=== PATIENT | female | born 1970 | race Caucasian/White ===

== ENCOUNTER 2017-09-18 15:04 | Emergency (ER) | payer OTHER ==
[~2017-09-18] VITALS: Ht 162.6 cm; Wt 71.0 kg
[~2017-09-18 15:04] MED LIST: CYCL-36 PO; DICL75 PO; DOXY100T OR; OXYC-360 PO; TUSSSUS PO
[2017-09-18 15:17] VITALS: BP 141/62; PULSE 72; RESP 16; TEMP 98.4; O2SAT 99
[2017-09-18] MEDS ORDERED: AMOX875T PO (15:50)
--- NOTE | 2017-09-18 15:52 | PD ---
HPI Chief Complaint: ENT Complaint Time Seen by Provider: 15:45 Travel History International Travel<30 days: No Contact w/Intl Traveler<30days: No Traveled to known affect area: No History of Present Illness HPI 47-year-old female presents for evaluation of sore throat, ear pressure, slight cough and congestion. Symptoms started 4 days ago. It hurts to swallow with no leading factors. She reports a fever as high as 101. She has not been using any medication for symptom relief. Denies rash, recent travel. No sick contacts. No other complaints at this time. PFSH Past Medical History Immunizations Current: Yes ?: Not : 4 Para: 3 Miscarriage: 1 Tubal Ligation: Yes (1997) Past Surgical History Gynecologic Surgery: Yes (UTERINE ABLATION) Social History Alcohol Use: No Tobacco Use: Yes (1 PPD) Substance Use: No Allergies-Medications (Allergen,Severity, Reaction): Coded Allergies: No Known Allergies (Verified Adverse Reaction, Unknown, 09/18/17) Reported Meds & Prescriptions Reported Meds & Active Scripts Active Flexeril (Cyclobenzaprine HCl) 10 Mg Tab 10 Mg PO Q8HPRN Diclofenac Sodium 75 Mg Tab 75 Mg PO BID 10 Days Tussionex (Chlorphenir/Hydrocodone Polistirex) Liqcr 5 Ml PO BIDPRN Doxycycline Hyclate 100 Mg Tab 100 Mg OR BID Percocet (Oxycodone/Acetaminophen) 5 Mg/325 Mg Tab 1-2 Tab PO Q4-6HPRN FOR PAIN Review of Systems Except as stated in HPI: all other systems reviewed are Neg Physical Exam Narrative GENERAL: Well-developed well-nourished female in no acute distress SKIN: Warm and dry. HEAD: Atraumatic. Normocephalic. EYES: Pupils equal and round. No scleral icterus. No injection or drainage. ENT: No nasal bleeding or discharge. Mucous membranes pink and moist. Oral pharyngeal erythema and exudate Noted. Tympanic memories appear normal without erythema or fluid level. NECK: Trachea midline. No JVD. No lymphadenopathy CARDIOVASCULAR: Regular rate and rhythm. No murmur appreciated. RESPIRATORY: No accessory muscle use. Clear to auscultation. Breath sounds equal bilaterally. Data Data Last Documented VS Vital Signs Date Time Temp Pulse Resp B/P (MAP) Pulse Ox O2 Delivery O2 Flow Rate FiO2 09/18/17 15:17 98.4 72 16 141/62 (24) 99 MDM Medical Decision Making Medical Screen Exam Complete: Yes Emergency Medical Condition: Yes Medical Record Reviewed: Yes Differential Diagnosis Exudative pharyngitis, influenza, bronchitis, pneumonia, infectious mononucleosis Narrative Course The patient has exudative pharyngitis. She will be treated with amoxicillin. Diagnosis Primary Impression: Exudative pharyngitis Additional Instructions: Medication as prescribed. Take Tylenol or Motrin for pain. Stay well-hydrated and well-nourished. Return for any emergent medical conditions. Med/Other Pt SpecificInfo: Prescription(s) given Scripts Amoxicillin (Amoxicillin) 875 Mg Tab 875 MG PO BID for Infection for 10 Days, #20 TAB 0 Refills Prov: Jannette Jackson MD 09/18/17 Disposition: 01 DISCHARGE HOME Condition: Stable Yair Martinez Sep 18, 2017 15:52
== END 2017-09-18 16:43 | disposition home or self-care (01) ==
LOC: PHEFT 15:04
DX: J02.9 Acute pharyngitis, unspecified (principal); F17.210 Nicotine dependence, cigarettes, uncomplicated
CPT/HCPCS: 99283

== ENCOUNTER 2018-01-19 12:31 | Emergency (ER) | payer OTHER ==
[~2018-01-19] VITALS: Ht 162.6 cm; Wt 75.0 kg
[~2018-01-19 12:31] MED LIST changes: +AMOX875T PO
[2018-01-19 12:36] VITALS: BP 128/84; PULSE 72; RESP 14; TEMP 98; O2SAT 98
[2018-01-19 13:11] LABS: BILIRUBIN, URINE NEG (NEG); BLOOD, URINE NEG (NEG); GLUCOSE,URINE NEG (NEG); KETONE, URINE NEG (NEG); NITRITE,URINE NEG (NEG); URINE COLOR YELLOW (YELLW/STRAW); URINE LEUKOCYTE ESTERASE NEG (NEG)
[2018-01-19 13:15] VITALS: O2SAT 97
--- NOTE | 2018-01-19 13:17 | PD ---
HPI Chief Complaint: GI Complaint Time Seen by Provider: 13:07 Travel History International Travel<30 days: No Contact w/Intl Traveler<30days: No Traveled to known affect area: No History of Present Illness HPI Patient comes in complaining of diffuse abdominal pain, crampy in sensation, 5- 6 out of 10, associated with diffuse and profuse diarrhea at times the last 2 days. The patient attempted to use Pepto-Bismol but without any relief. Patient denied taking any Imodium [id number]. Patient denies any nausea or vomiting. Patient does state that her father has Crohn's disorder and that this overall is not the first time she has had similar symptoms. She has had episodes of diarrhea intermittently occurring over the past 15 years, she has not seen a GI specialist for formal diagnosis. 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 Tubal ligation and uterine ablation, patient is a and 1 miscarriage, half pack a day smoker PFSH Past Medical History Diminished Hearing: No Immunizations Current: Yes Thyroid Disease: Yes ?: Not LMP: Ablation : 4 Para: 3 Miscarriage: 1 Tubal Ligation: Yes (1997) Past Surgical History Gynecologic Surgery: Yes (UTERINE ABLATION) Other Surgery: Yes (thyroid removal) Social History Alcohol Use: No Tobacco Use: Yes (08/22 PPD) Substance Use: No Allergies-Medications (Allergen,Severity, Reaction): Coded Allergies: No Known Allergies (Verified Adverse Reaction, Unknown, 01/19/18) Reported Meds & Prescriptions Reported Meds & Active Scripts Active Review of Systems General / Constitutional: No: Fever Eyes: No: Visual changes HENT: No: Headaches Cardiovascular: No: Chest Pain or Discomfort Respiratory: No: Shortness of Breath Gastrointestinal: Positive: Diarrhea, Abdominal Pain Genitourinary: No: Dysuria Musculoskeletal: No: Pain Skin: No Rash Neurologic: No: Weakness Psychiatric: No: Depression Endocrine: No: Polydipsia Hematologic/Lymphatic: No: Easy Bruising Physical Exam Narrative GENERAL: SKIN: Warm and dry. HEAD: Atraumatic. Normocephalic. EYES: Pupils equal and round. No scleral icterus. No injection or drainage. ENT: No nasal bleeding or discharge. Mucous membranes pink and moist. NECK: Trachea midline. No JVD. CARDIOVASCULAR: Regular rate and rhythm. RESPIRATORY: No accessory muscle use. Clear to auscultation. Breath sounds equal bilaterally. GASTROINTESTINAL: Abdomen soft, diffusely tender to percussion throughout all quadrants , nondistended. MUSCULOSKELETAL: Extremities without clubbing, cyanosis, or edema. No obvious deformities. NEUROLOGICAL: Awake and alert. No obvious cranial nerve deficits. Motor grossly within normal limits. Five out of 5 muscle strength in the arms and legs. Normal speech. PSYCHIATRIC: Appropriate mood and affect; insight and judgment normal. Data Data Last Documented VS Vital Signs Date Time Temp Pulse Resp B/P (MAP) Pulse Ox O2 Delivery O2 Flow Rate FiO2 01/19/18 13:49 76 18 109/75 (86) 97 Room Air 01/19/18 12:36 98.0 Orders Orders Urinalysis - C+S If Indicated (01/19/18 12:32) Ed Urine Pregnancytest Poc (01/19/18 12:32) Ct Abd/Pel W Iv Contrast(Rout) (01/19/18 13:17) Complete Blood Count With Diff (01/19/18 13:42) Comprehensive Metabolic Panel (01/19/18 13:42) Lipase (01/19/18 13:42) Iv Access Insert/Monitor (01/19/18 13:42) Ecg Monitoring (01/19/18 13:42) Oximetry (01/19/18 13:42) NPO (01/19/18 13:42) Morphine Inj (Morphine Inj) (01/19/18 13:45) Ondansetron Inj (Zofran Inj) (01/19/18 13:45) Sodium Chlor 0.9% 1000 Ml Inj (Ns 1000 M (01/19/18 13:42) Sodium Chloride 0.9% Flush (Ns Flush) (01/19/18 13:45) Ketorolac Inj (Toradol Inj) (01/19/18 13:45) Iohexol 350 Inj (Omnipaque 350 Inj) (01/19/18 13:47) Labs Laboratory Tests Test 01/19/18 12:40 01/19/18 13:24 Urine Collection Type CLEAN CATCH Urine Color YELLOW Urine Turbidity CLEAR Urine pH 5.0 Urine Specific [place] 1.025 Urine Protein NEG mg/dL Urine Glucose (UA) NEG mg/dL Urine Ketones NEG mg/dL Urine Occult Blood NEG Urine Nitrite NEG Urine Bilirubin NEG Urine Urobilinogen 0.2 MG/DL Urine Leukocyte Esterase NEG Urine RBC 0-3 /hpf Urine WBC 0-2 /hpf Urine Squamous Epithelial Cells 0-5 /hpf Microscopic Urinalysis Comment CULT NOT INDICATED White Blood Count 9.4 TH/MM3 Red Blood Count 5.01 MIL/MM3 Hemoglobin 15.4 GM/DL Hematocrit 44.0 % Mean Corpuscular Volume 87.9 FL Mean Corpuscular Hemoglobin 30.8 PG Mean Corpuscular Hemoglobin Concent 35.1 % Red Cell Distribution Width 13.7 % Platelet Count 310 TH/MM3 Mean Platelet Volume 9.6 FL Neutrophils (%) (Auto) 54.5 % Lymphocytes (%) (Auto) 37.8 % Monocytes (%) (Auto) 3.8 % Eosinophils (%) (Auto) 2.4 % Basophils (%) (Auto) 1.5 % Neutrophils # (Auto) 5.2 TH/MM3 Lymphocytes # (Auto) 3.5 TH/MM3 Monocytes # (Auto) 0.4 TH/MM3 Eosinophils # (Auto) 0.2 TH/MM3 Basophils # (Auto) 0.1 TH/MM3 CBC Comment DIFF FINAL Differential Comment Blood Urea Nitrogen 9 MG/DL Creatinine 0.74 MG/DL Random Glucose 95 MG/DL Total Protein 7.9 GM/DL Albumin 3.9 GM/DL Calcium Level 9.4 MG/DL Alkaline Phosphatase 119 U/L Aspartate Amino Transf (AST/SGOT) 25 U/L Alanine Aminotransferase (ALT/SGPT) 44 U/L Total Bilirubin 0.2 MG/DL Sodium Level 140 MEQ/L Potassium Level 3.5 MEQ/L Chloride Level 108 MEQ/L Carbon Dioxide Level 24.7 MEQ/L Anion Gap 7 MEQ/L Estimat Glomerular Filtration Rate 85 ML/MIN Lipase 146 U/L [facility] Medical Decision Making Medical Screen Exam Complete: Yes Emergency Medical Condition: Yes Medical Record Reviewed: Yes Differential Diagnosis Gastroenteritis versus IBS versus colitis versus diverticulitis Narrative Course CBC shows no leukocytosis, no anemia, normal platelet count, no left shift UA is negative for any UTI Electrolytes are within normal limits, normal kidney liver and pancreatic functions CT abdomen and pelvis read as nonobstructive bowel gas pattern most characteristic of gastroenteritis, single small nonobstructing left renal calculus Diagnosis Primary Impression: Enteritis Referrals: Brigitte Freeman MD PLEASE CONTACT AND MAKE FOLLOW UP APPOINTMENT FOR FURTHER EVALUATION OF YOUR CONDITION. Patient Instructions: Gastroenteritis (ED), General Instructions Scripts Ondansetron Odt (Zofran Odt) 4 Mg Tab 4 MG SL Q6HR Y for Nausea/Vomiting, #20 TAB 0 Refills Prov: Dominik Garcia MD 01/19/18 Tramadol (Ultram) 50 Mg Tab 50 MG PO Q6H Y for PAIN, #15 TAB 0 Refills Prov: Dominik Garcia MD 01/19/18 Metronidazole (Flagyl) 500 Mg Tab 500 MG PO TID for Infection for 10 Days, #30 TAB 0 Refills Prov: Dominik Garcia MD 01/19/18 Ciprofloxacin (Cipro) 500 Mg Tab 500 MG PO BID for Infection for 7 Days, #14 TAB 0 Refills Prov: Dominik Garcia MD 01/19/18 Disposition: 01 DISCHARGE HOME Condition: Stable Dominik Garcia MD Jan 19, 2018 13:17
[2018-01-19 13:20] LABS: WBC, URINE 0-2 /hpf (0-5)
[2018-01-19 13:21] LABS: RBC, URINE 0-3 /hpf (0-3); SQUAMOUS EPITHELIAL CELL URINE 0-5 /hpf (0-5)
[2018-01-19] MEDS ORDERED: SODIUM CHLOR 0.9% 1000 ML INJ 1,000 ML IV SCH (13:42)
[2018-01-19] MEDS ORDERED: SODIUM CHLORIDE 0.9% FLUSH 10 ML FLUSH IV FLUSH PRN (13:45)
[2018-01-19] MEDS ORDERED: KETOROLAC TROMETHAMINE 30 MG/ML (IVP) VIAL IVP ONE (13:45)
[2018-01-19] MEDS ORDERED: MORPHINE SULFATE 4 MG/ML INJ IV PUSH ONE (13:45)
[2018-01-19] MEDS ORDERED: ONDANSETRON HCL 4 MG/2 ML VIAL IVP ONE (13:45)
[2018-01-19] MEDS ORDERED: IOHEXOL 350 MG/ML 10 ML VIAL (for RAD DIAG) IVCONTRAST ONE (13:47)
[2018-01-19 13:49] VITALS: BP 109/75; PULSE 76; RESP 18; O2SAT 97
[2018-01-19 13:52] LABS: AUTOMATED NEUTROPHIL # 5.2 TH/MM3 (1.8-7.7); BASOPHIL # 0.1 TH/MM3 (0-0.2); BASOPHIL % 1.5 % (0.0-2.0); EOSINOPHIL # 0.2 TH/MM3 (0-0.4); EOSINOPHIL % 2.4 % (0.0-4.0); HEMOGLOBIN 15.4 GM/DL (11.6-15.3); LYMPH % 37.8 % (9.0-44.0); LYMPHOCYTE # 3.5 TH/MM3 (1.0-4.8); MEAN CELL VOLUME 87.9 FL (80.0-100.0); MEAN CORPUSCULAR HEMOGLOBIN 30.8 PG (27.0-34.0); MEAN CORPUSCULAR HGB CONC 35.1 % (32.0-36.0); MEAN PLATELET VOLUME 9.6 FL (7.0-11.0); MONO % 3.8 % (0.0-8.0); MONOCYTE # 0.4 TH/MM3 (0-0.9); NEUT % 54.5 % (16.0-70.0); PLATELET COUNT 310 TH/MM3 (150-450); RED BLOOD COUNT 5.01 MIL/MM3 (4.00-5.30); RED CELL DISTRIBUTION WIDTH 13.7 % (11.6-17.2); WHITE BLOOD COUNT 9.4 TH/MM3 (4.0-11.0)
--- NOTE | 2018-01-19 14:00 | RADRPT ---
EXAM DATE: 01/19/2018 1:51 PM EDT AGE/SEX: 47 years / Female INDICATIONS: Diffuse abdominal pain and diarrhea x 2 days. CLINICAL DATA: This is the patient's initial encounter. Patient reports that signs and symptoms have been present for 2 days and indicates a pain score of 8/10. MEDICAL/SURGICAL HISTORY: None. Tubal ligation. ORAL CONTRAST: No oral contrast ingested. RADIATION DOSE: 8.81 CTDI (mGy) COMPARISON: No prior [facility] exams available for comparison. TECHNIQUE: Multiple contiguous axial images were obtained through the abdomen and pelvis following b olus infusion of 90 ml Omnipaque 350 (iohexol) nonionic water-soluble contrast as a single exam dos e. No oral contrast ingested. Using automated exposure control and adjustment of the mA and/or kV ac cording to patient size, the radiation dose was kept as low as reasonably achievable to obtain optima l diagnostic quality images. FINDINGS: Lower Lungs: The visualized lower lungs are clear. Liver: The liver has a homogeneous density without space-occupying lesion. There is no dilation of th e biliary tree. The gallbladder is unremarkable in appearance. Spleen: Homogeneous density without enlargement. Pancreas: Unremarkable without mass or calcification. Kidneys: Normal in size and shape. No evidence of mass or hydronephrosis. There is a single small 2 to 3 mm nonobstructing left renal calculus. Adrenal Glands: Unremarkable. Aorta: The aorta and proximal iliac vessels are grossly unremarkable without aneurysmal dilation. Bowel/Mesentery: No oral contrast was given limiting the sensitivity of the exam. There are multiple loops of nondilated air-containing small bowel with multiple small air-fluid levels. Gas and stool i s noted segmentally:. There is no inflammatory change or evidence of obstruction. No free air Abdominal Wall: Intact. Retroperitoneum: No evidence of adenopathy in the retrocrural, para-aortic, or deep pelvic regions. Bladder: Contours are smooth. Reproductive Organs: No abnormal masses or calcifications seen. Inguinal: The inguinal region is unremarkable without evidence of adenopathy. Bony Structures: Unremarkable. CONCLUSION: 1. Nonspecific, nonobstructive bowel gas pattern most characteristic of a gastroenteritis and/or ile us. 2. Single small nonobstructing left renal calculus. Electronically signed by: Tapan Salas MD 01/19/2018 1:58 PM EDT
[2018-01-19 14:01] LABS: CHLORIDE 108 MEQ/L (98-107); SODIUM (NA) 140 MEQ/L (136-145)
[2018-01-19 14:05] LABS: ALBUMIN 3.9 GM/DL (3.4-5.0); BICARBONATE 24.7 MEQ/L (21.0-32.0); BLOOD UREA NITROGEN 9 MG/DL (7-18); CALCIUM 9.4 MG/DL (8.5-10.1); GLUCOSE,RANDOM 95 MG/DL (74-106)
[2018-01-19 14:08] LABS: ALT (GPT) 44 U/L (10-53); AST (GOT) 25 U/L (15-37); CREATININE 0.74 MG/DL (0.50-1.00); GLOMERULAR FILTRATION RATE 85 ML/MIN (>89)
[2018-01-19 14:10] LABS: TOTAL BILIRUBIN ADULT 0.2 MG/DL (0.2-1.0); TOTAL PROTEIN 7.9 GM/DL (6.4-8.2)
[2018-01-19 14:11] LABS: ALKALINE PHOSPHATASE 119 U/L (45-117)
[2018-01-19] MEDS ORDERED: TRAM50 PO (14:31)
[2018-01-19] MEDS ORDERED: ZOFR4TAB3 SL (14:31)
[2018-01-19] MEDS ORDERED: CIPR-9 PO (14:31)
[2018-01-19] MEDS ORDERED: METR-1 PO (14:31)
[2018-01-19 14:58] VITALS: RESP 16
[2018-01-19 15:01] VITALS: BP 120/77
== END 2018-01-19 15:20 | disposition home or self-care (01) ==
LOC: PHED 12:31
DX: K52.9 Noninfective gastroenteritis and colitis, unspecified (principal); N20.0 Calculus of kidney; E03.9 Hypothyroidism, unspecified; F17.200 Nicotine dependence, unspecified, uncomplicated
CPT/HCPCS: 74177; 80053; 81001; 83690; 84703; 85025; 96361; 96374; 96375; 99284; J1885; J2270; J2405; J7030; Q9967

== ENCOUNTER 2018-01-22 11:51 | Emergency (ER) | payer OTHER ==
[~2018-01-22] VITALS: Ht 162.6 cm; Wt 65.0 kg
[~2018-01-22 11:51] MED LIST changes: -AMOX875T PO; +CIPR-9 PO; -CYCL-36 PO; -DICL75 PO; -DOXY100T OR; +METR-1 PO; -OXYC-360 PO; +TRAM50 PO; -TUSSSUS PO; +ZOFR4TAB3 SL
[2018-01-22 12:50] VITALS: BP 130/78; PULSE 70; RESP 18; TEMP 98.1; O2SAT 99
[2018-01-22] MEDS ORDERED: SODIUM CHLORIDE 0.9% FLUSH 10 ML FLUSH IV FLUSH PRN (16:00)
[2018-01-22] MEDS ORDERED: DICYCLOMINE HCL 10 MG CAP PO ONE (16:00)
[2018-01-22] MEDS ORDERED: KETOROLAC TROMETHAMINE 30 MG/ML (IVP) VIAL IV PUSH ONE (16:00)
[2018-01-22] MEDS ORDERED: LEVO200T4 PO (16:02)
--- NOTE | 2018-01-22 16:34 | RADRPT ---
EXAM DATE: 01/22/2018 4:21 PM EDT AGE/SEX: 47 years / Female INDICATIONS: Vomiting and constipation for 5 days. CLINICAL DATA: This is the patient's initial encounter. Patient reports that signs and symptoms have been present for 4 - 6 days and indicates a pain score of 6/10. MEDICAL/SURGICAL HISTORY: None. Tubal ligation. COMPARISON: No prior [facility] exams available for comparison. FINDINGS: Supine and upright views of the abdomen were performed. The abdominal bowel gas pattern is normal. No air-fluid levels are seen. No abnormal masses, or organomegaly is seen. Punctate calcification proje cts over the lower pole collecting system of the left kidney. A number of phleboliths are identified in the deep pelvis The visualized lower lungs are clear. No evidence of free intraperitoneal gas. The osseous structures are unremarkable. CONCLUSION: 1. Subcentimeter calcification projecting over the lower pole of the left kidney characteristic of a small stone. 2. Nonobstructive bowel gas pattern. No pneumoperitoneum. Electronically signed by: Blake Nolen MD 01/22/2018 4:33 PM EDT
[2018-01-22 16:35] LABS: AUTOMATED NEUTROPHIL # 5.7 TH/MM3 (1.8-7.7); BASOPHIL # 0.1 TH/MM3 (0-0.2); BASOPHIL % 0.7 % (0.0-2.0); EOSINOPHIL # 0.3 TH/MM3 (0-0.4); EOSINOPHIL % 2.7 % (0.0-4.0); HEMATOCRIT 43.9 % (35.0-46.0); HEMOGLOBIN 14.8 GM/DL (11.6-15.3); LYMPH % 32.8 % (9.0-44.0); LYMPHOCYTE # 3.2 TH/MM3 (1.0-4.8); MEAN CELL VOLUME 88.4 FL (80.0-100.0); MEAN CORPUSCULAR HEMOGLOBIN 29.9 PG (27.0-34.0); MEAN CORPUSCULAR HGB CONC 33.8 % (32.0-36.0); MEAN PLATELET VOLUME 8.5 FL (7.0-11.0); MONO % 5.5 % (0.0-8.0); MONOCYTE # 0.5 TH/MM3 (0-0.9); NEUT % 58.3 % (16.0-70.0); PLATELET COUNT 298 TH/MM3 (150-450); RED BLOOD COUNT 4.97 MIL/MM3 (4.00-5.30); RED CELL DISTRIBUTION WIDTH 14.2 % (11.6-17.2); WHITE BLOOD COUNT 9.7 TH/MM3 (4.0-11.0)
[2018-01-22 16:45] VITALS: O2SAT 98
[2018-01-22 16:48] LABS: PROTHROMBIN TIME - PATIENT 10.5 SEC (9.8-11.6)
[2018-01-22 16:54] LABS: ALBUMIN 3.9 GM/DL (3.4-5.0); ALT (GPT) 49 U/L (10-53); AST (GOT) 42 U/L (15-37); BICARBONATE 25.5 MEQ/L (21.0-32.0); BLOOD UREA NITROGEN 8 MG/DL (7-18); CALCIUM 9.1 MG/DL (8.5-10.1); CHLORIDE 107 MEQ/L (98-107); CREATININE 0.78 MG/DL (0.50-1.00); GLOMERULAR FILTRATION RATE 80 ML/MIN (>89); GLUCOSE,RANDOM 91 MG/DL (74-106); SODIUM (NA) 141 MEQ/L (136-145)
[2018-01-22 16:57] LABS: ALKALINE PHOSPHATASE 122 U/L (45-117); TOTAL BILIRUBIN ADULT 0.2 MG/DL (0.2-1.0); TOTAL PROTEIN 7.9 GM/DL (6.4-8.2)
[2018-01-22 17:13] LABS: BACTERIA, URINE RARE /hpf; BILIRUBIN, URINE NEG (NEG); BLOOD, URINE NEG (NEG); GLUCOSE,URINE NEG (NEG); KETONE, URINE NEG (NEG); MUCUS URINE FEW /lpf (OCC); NITRITE,URINE NEG (NEG); SQUAMOUS EPITHELIAL CELL URINE 17 /hpf (0-5); URINE COLOR YELLOW (YELLW/STRAW); URINE LEUKOCYTE ESTERASE MOD (NEG)
[2018-01-22 18:14] VITALS: BP 128/74
--- NOTE | 2018-01-22 18:16 | PD ---
HPI Chief Complaint: Abdominal Pain Time Seen by Provider: 15:32 Travel History International Travel<30 days: No Contact w/Intl Traveler<30days: No Traveled to known affect area: No History of Present Illness HPI Patient is a 47-year-old female who comes in complaining of abdominal pain. She says she has been having pain since last week. She was seen [place] where she had a CAT scan done that showed a possible colitis. She was discharged home with prescriptions for antibiotics and pain medicine. She says she has been taking the antibiotics without any improvement. She has not really been taking the pain medicine much at home. She says that she had diarrhea last week, but now she is constipated. She denies nausea or vomiting. She denies fever chills. She denies any urinary symptoms. Severity is mild to moderate. PFSH Past Medical History Diminished Hearing: No Immunizations Current: Yes Thyroid Disease: Yes (REMOVED) ?: Not LMP: ABLATION : 4 Para: 3 Miscarriage: 1 Tubal Ligation: Yes (1997) Past Surgical History Gynecologic Surgery: Yes (UTERINE ABLATION) Other Surgery: Yes (THYROID REMOVAL) Social History Alcohol Use: Yes (SOCIALLY) Tobacco Use: Yes (1 PPD) Substance Use: No Allergies-Medications (Allergen,Severity, Reaction): Coded Allergies: No Known Allergies (Verified Adverse Reaction, Unknown, 01/22/18) Reported Meds & Prescriptions Reported Meds & Active Scripts Active Zofran Odt (Ondansetron Odt) 4 Mg Tab 4 Mg SL Q6HR PRN Ultram (Tramadol HCl) 50 Mg Tab 50 Mg PO Q6H PRN Flagyl (Metronidazole) 500 Mg Tab 500 Mg PO TID 10 Days Cipro (Ciprofloxacin HCl) 500 Mg Tab 500 Mg PO BID 7 Days Reported Levothyroxine (Levothyroxine Sodium) 200 Mcg Tab 200 Mcg PO DAILY Review of Systems Except as stated in HPI: all other systems reviewed are Neg General / Constitutional: No: Fever, Chills HENT: No: Headaches, Lightheadedness Cardiovascular: No: Chest Pain or Discomfort Respiratory: No: Shortness of Breath Gastrointestinal: Positive: Abdominal Pain, Constipation, No: Nausea, Vomiting Genitourinary: No: Dysuria Musculoskeletal: No: Myalgias, Edema Skin: No Rash, No Change in Pigmentation Neurologic: No: Weakness, Dizziness Physical Exam Narrative GENERAL: Awake and alert, in no acute distress. SKIN: Focused skin assessment warm/dry. HEAD: Atraumatic. Normocephalic. EYES: Pupils equal and round. No scleral icterus. ENT: No nasal bleeding or discharge. Mucous membranes pink and moist. NECK: Trachea midline. No JVD. CARDIOVASCULAR: Regular rate and rhythm. No murmur appreciated. RESPIRATORY: No accessory muscle use. Clear to auscultation. Breath sounds equal bilaterally. GASTROINTESTINAL: Abdomen soft, nondistended. Mild tenderness to palpation, worse in the lower abdomen. No rebound or guarding. MUSCULOSKELETAL: No obvious deformities. No clubbing. No cyanosis. No edema. NEUROLOGICAL: Awake and alert. No obvious cranial nerve deficits. Motor grossly within normal limits. Normal speech. PSYCHIATRIC: Appropriate mood and affect; insight and judgment normal. Data Data Last Documented VS Vital Signs Date Time Temp Pulse Resp B/P (MAP) Pulse Ox O2 Delivery O2 Flow Rate FiO2 01/22/18 16:45 98 Room Air 01/22/18 16:03 18 01/22/18 12:50 98.1 70 130/78 (95) Orders Orders Complete Blood Count With Diff (01/22/18 15:56) Comprehensive Metabolic Panel (01/22/18 15:56) Lipase (01/22/18 15:56) Lactic Acid (01/22/18 15:56) Prothrombin Time / Inr (Pt) (01/22/18 15:56) Act Partial Throm Time (Ptt) (01/22/18 15:56) Urinalysis - C+S If Indicated (01/22/18 15:56) Abdomen, Flat & Upright (01/22/18 ) Iv Access Insert/Monitor (01/22/18 15:56) Ecg Monitoring (01/22/18 15:56) Oximetry (01/22/18 15:56) Sodium Chloride 0.9% Flush (Ns Flush) (01/22/18 16:00) Dicyclomine (Bentyl) (01/22/18 16:00) Ketorolac Inj (Toradol Inj) (01/22/18 16:00) Urine Culture (01/22/18 16:45) Labs Laboratory Tests Test 01/22/18 16:05 01/22/18 16:45 White Blood Count 9.7 TH/MM3 Red Blood Count 4.97 MIL/MM3 Hemoglobin 14.8 GM/DL Hematocrit 43.9 % Mean Corpuscular Volume 88.4 FL Mean Corpuscular Hemoglobin 29.9 PG Mean Corpuscular Hemoglobin Concent 33.8 % Red Cell Distribution Width 14.2 % Platelet Count 298 TH/MM3 Mean Platelet Volume 8.5 FL Neutrophils (%) (Auto) 58.3 % Lymphocytes (%) (Auto) 32.8 % Monocytes (%) (Auto) 5.5 % Eosinophils (%) (Auto) 2.7 % Basophils (%) (Auto) 0.7 % Neutrophils # (Auto) 5.7 TH/MM3 Lymphocytes # (Auto) 3.2 TH/MM3 Monocytes # (Auto) 0.5 TH/MM3 Eosinophils # (Auto) 0.3 TH/MM3 Basophils # (Auto) 0.1 TH/MM3 CBC Comment DIFF FINAL Differential Comment Prothrombin Time 10.5 SEC Prothromb Time International Ratio 1.0 RATIO Activated Partial Thromboplast Time 28.7 SEC Blood Urea Nitrogen 8 MG/DL Creatinine 0.78 MG/DL Random Glucose 91 MG/DL Total Protein 7.9 GM/DL Albumin 3.9 GM/DL Calcium Level 9.1 MG/DL Alkaline Phosphatase 122 U/L Aspartate Amino Transf (AST/SGOT) 42 U/L Alanine Aminotransferase (ALT/SGPT) 49 U/L Total Bilirubin 0.2 MG/DL Sodium Level 141 MEQ/L Potassium Level 3.6 MEQ/L Chloride Level 107 MEQ/L Carbon Dioxide Level 25.5 MEQ/L Anion Gap 9 MEQ/L Estimat Glomerular Filtration Rate 80 ML/MIN Lactic Acid Level 1.1 mmol/L Lipase 123 U/L Urine Color YELLOW Urine Turbidity HAZY Urine pH 6.0 Urine Specific [place] 1.008 Urine Protein NEG mg/dL Urine Glucose (UA) NEG mg/dL Urine Ketones NEG mg/dL Urine Occult Blood NEG Urine Nitrite NEG Urine Bilirubin NEG Urine Urobilinogen LESS THAN 2.0 MG/DL Urine Leukocyte Esterase MOD Urine RBC 1 /hpf Urine WBC 9 /hpf Urine Squamous Epithelial Cells 17 /hpf Urine Bacteria RARE /hpf Urine Mucus FEW /lpf Microscopic Urinalysis Comment CULTURE INDICATED MDM Medical Decision Making Medical Screen Exam Complete: Yes Emergency Medical Condition: Yes Medical Record Reviewed: Yes Differential Diagnosis Inflammatory bowel disease versus constipation versus dehydration versus obstruction Narrative Course Patient is a 47-year-old female comes in complaining of abdominal pain. Exam shows mild tenderness, especially in the lower abdomen. X-ray obtained shows no signs of obstruction. Labs sent show no acute abnormalities. Last 24 hours Impressions Abdomen X-Ray 01/22/18 0000 Signed Impressions: CONCLUSION: 1. Subcentimeter calcification projecting over the lower pole of the left kidn ey characteristic of a small stone. 2. Nonobstructive bowel gas pattern. No pneumoperitoneum. Patient given Toradol and Bentyl. She is encouraged to take the pain medicine she has at home as needed. Advised to follow-up with gastroenterology, who she has an appointment with at the end of the month. She will follow-up with her primary care doctor on Monday. Advised to try MiraLAX or milk of magnesia. Advised return to the ED as needed for any worsening symptoms. Diagnosis Primary Impression: Abdominal pain Qualified Codes: R10.84 - Generalized abdominal pain Patient Instructions: Abdominal Pain (ED), General Instructions Additional Instructions: Follow up with gastroenterology. Take Milk of Magnesia and Miralax to help with constipation. Return to the ED as needed for any worsening symptoms. Disposition: 01 DISCHARGE HOME Condition: Stable Kimberley Angulo MD Jan 22, 2018 18:16
== END 2018-01-22 18:23 | disposition home or self-care (01) ==
LOC: NEPE 11:51
DX: R10.84 Generalized abdominal pain (principal)
CPT/HCPCS: 74019; 80053; 81001; 83605; 83690; 85025; 85610; 85730; 87086; 96374; 99284; J1885